=== PATIENT | female | born 1995 | race Caucasian/White ===

== ENCOUNTER 2025-02-23 16:21 | Emergency (ER) | payer OTHER, SELFPAY ==
--- OUTSIDE RECORDS SUMMARY | 2024-12-06 11:40 | XMS_ITS ---
Author Organization [facility] Address [address] [place] [address] Phone [phone] Care Team Providers Care Wrap Yarn Sorter Name Role Phone Angie Chambers Primary Care Provider REASON FOR VISIT 2 Month Psych F/U & Med Refill Medications Medication SIG (Take, Route, Frequency, Duration) Notes Start Date End Date Diagnosis (ICD Code) Status PARoxetine HCl 10 MG Tablet 1 tablet Orally Once a day; Duration: 15 days 10/11/2024 Major depressi on (ICD_10 - F32.9) Active Amphetamine-Dextro amphet ER 20 MG Capsule Extended Release 24 Hour 1 capsule in the morning Orally Once a day; Duration: 30 days 07/31/2024 ADD (attention deficit disorder) (ICD_10 - F90.0) Active buPROPion HCl ER (XL) 300 MG Tablet Extended Release 24 Hour 1 tablet in the morning Orally Once a day; Duration: 15 days Major depressi on (ICD_10 - F32.9) Active PARoxetine HCl 20 MG Tablet 1 tablet in the morning Orally Once a day; Duration: 15 days Major depressi on (ICD_10 - F32.9) Active Amphetamine-Dextro amphet ER 20 MG Capsule Extended Release 24 Hour 1 capsule in the morning Orally Once a day; Duration: 30 days 08/28/2024 ADD (attention deficit disorder) (ICD_10 - F90.0) Active Amphetamine-Dextro amphet ER 20 MG Capsule Extended Release 24 Hour 1 capsule in the morning Orally Once a day; Duration: 15 days 11/22/2024 ADD (attention deficit disorder) (ICD_10 - F90.0) Active Social History Sex Observation Social History Observation Description Sex Observation Female Sexual Orientation Social History Observation Description Sexual Orientation Straight or heterose xual Gender Identity Social History Observation Description Gender Identity Female Encounters Date Time Type Facility Location Provider Diagnosis 12/06/2024 11:40 AM Office Visit [address] [place] [address] Angie Chambers Plan Of Treatment No Information Medical (General) History Medical History History ICD Code Hx of methamphetamin abuse Surgical History Surgery Date(Month/Year) Tubal Ligation 12/2023 Hospitalization History Reason Date(Month/Year) Progress Notes * Sharee SHARMADOB:1995 (30 yo F)Acc No.[id number]:12/06/2024 UNLOCKED PROGRESS NOTE Patient: Sharee MCGEE Provider: Janae Chambers, MSN, RADIOLOGIC ELECTRONIC SPECIALIST, BUS REPAIR SUPERVISOR-C :1995 A ge:29 Y S ex:Female Date:12/06/2024 Address:[address] [place], [place] [address] Subjective: * Chief Complaints: * 1 . 2 Month Psych F/U & Med Refill. * Screening: * * Medical History: * Medications: T aking Amphetamine-Dextroamphet ER 20 MG Capsule Extended Release 24 Hour 1 capsule in the morning Orally Once a day , Taking Amphetamine-Dextroamphet ER 20 MG Capsule Extended Release 24 Hour 1 capsule in the morning Orally Once a day , Taking buPROPion HCl ER (XL) 300 MG Tablet Extended Release 24 Hour 1 tablet in the morning Orally Once a day , Taking PARoxetine HCl 20 MG Tablet 1 tablet in the morning Orally Once a day , Taking Amphetamine-Dextroamphet ER 20 MG Capsule Extended Release 24 Hour 1 capsule in the morning Orally Once a day , Taking PARoxetine HCl 10 MG Tablet 1 tablet Orally Once a day Objective: * Vitals: Assessment: Plan: * Treatment: * * Electronic signature of Fabrice Chambers , [id number] on 02/23/2025 at 04:29 PM DISTRICT ATTORNEY Sign off status: Pending * Provider: Janae Chambers, MSN, RADIOLOGIC ELECTRONIC SPECIALIST, BUS REPAIR SUPERVISOR-C Date: 1 Generated for Ananya celestin/Garett/Ángelitting on: 1 04/26/2024 04:29 PM DISTRICT ATTORNEY
--- OUTSIDE RECORDS SUMMARY | 2024-12-14 09:00 | XMS_ITS ---
Author Organization [facility] Address [address] [place] [address] Phone [phone] Care Team Providers Care Green Building Materials Designer Name Role Phone Angie Chambers Primary Care Provider REASON FOR VISIT 2 Month Psych F/U & Med Refill Medications Medication SIG (Take, Route, Frequency, Duration) Notes Start Date End Date Diagnosis (ICD Code) Status buPROPion HCl ER (XL) 300 MG Tablet [...] (attention deficit disorder) (ICD_10 - F90.0) Active PARoxetine HCl 10 MG Tablet 1 tablet Orally Once a day; Duration: 15 days 10/11/2024 Major depressi on (ICD_10 - F32.9) Active Social History Sex Observation Social History Observation Description Sex Observation Female Sexual Orientation Social History Observation Description Sexual Orientation Straight or heterose xual Gender Identity Social History Observation Description Gender Identity Female Encounters Date Time Type Facility Location Provider Diagnosis 12/14/2024 09:00 AM Office Visit [address] [place] [address] Angie Chambers Plan Of Treatment No Information Medical (General) History Medical History History ICD Code Hx of methamphetamin abuse Surgical History Surgery Date(Month/Year) Tubal Ligation 12/2023 Hospitalization History Reason Date(Month/Year) Progress Notes * Sharee SHARMADOB:1995 (30 yo F)Acc No.[id number]:12/14/2024 UNLOCKED PROGRESS NOTE Patient: Sharee MCGEE Provider: Janae Chambers, MSN, IT QUALITY ANALYST, GANG KNIFE FISH CHOPPER-C :1995 A ge:29 Y S ex:Female Date:12/14/2024 Address:[address] [place], [place] [address] Subjective: * Chief Complaints: * 1 . [...] * Electronic signature of Fabrice Chambers , [id number] on 02/23/2025 at 04:29 PM SHEARER SCREEN MEASURER AND TRIMMER Sign off status: Pending * Provider: Janae Chambers, MSN, IT QUALITY ANALYST, GANG KNIFE FISH CHOPPER-C Date: 1 Generated for Ananya celestin/Garett/Rosina on: 1 04/26/2024 04:29 PM SHEARER SCREEN MEASURER AND TRIMMER
[2025-02-23 16:27] VITALS: BP 136/89; PULSE 73; RESP 16; TEMP 36.3; O2SAT 100
--- OUTSIDE RECORDS SUMMARY | 2025-02-23 16:29 | XMS_ITS | Patient Health Record ---
Author Organization [facility] Address [address] [place] [address] Phone [phone] Care Team Providers Care Lamp Shade Sewer Name Role Phone Angie Chambers Primary Care Provider [phone] Lizette Campa [phone] Allergies Allergen (clinical drug ingredient) Drug/Non Drug Allergy documented on EMR Reaction Allergy Type Onset Date Status methylphenidate Methylphenidate Unknown Drug Allergy Active Reason For Referral Addressed Referral details can be found under 'Consultation Request Notes' section Medications Medication SIG (Take, Route, Frequency, Duration) Notes Start Date End Date Diagnosis (ICD Code) Status Amphetamine-Dextro amphet ER 20 MG Capsule Extended Release 24 Hour 1 capsule in the morning Orally Once a day; Duration: 30 days 03/06/2025 ADD (attention deficit disorder) (ICD_10 - F90.0) Active Amphetamine-Dextro amphet ER 20 MG Capsule Extended Release 24 Hour 1 capsule in the morning Orally Once a day; Duration: 30 days 08/28/2024 ADD (attention deficit disorder) (ICD_10 - F90.0) Active PARoxetine HCl 20 MG Tablet 1 tablet in the morning Orally Once a day; Duration: 30 days Major depressi on (ICD_10 - F32.9) Active Amphetamine-Dextro amphet ER 20 MG Capsule Extended Release 24 Hour 1 capsule in the morning Orally Once a day; Duration: 30 days 01/17/2025 ADD (attention deficit disorder) (ICD_10 - F90.0) Active PARoxetine HCl 10 MG Tablet 1 tablet Orally Once a day; Duration: 30 days Major depressi on (ICD_10 - F32.9) Active Amphetamine-Dextro amphet ER 20 MG Capsule Extended Release 24 Hour 1 capsule in the morning Orally Once a day; Duration: 30 days 02/06/2025 ADD (attention deficit disorder) (ICD_10 - F90.0) Active buPROPion HCl ER (XL) 300 MG Tablet Extended Release 24 Hour 1 tablet in the morning Orally Once a day; Duration: 30 days Major depressi on (ICD_10 - F32.9) Active Amphetamine-Dextro amphet ER 20 MG Capsule Extended Release 24 Hour 1 capsule in the morning Orally Once a day; Duration: 30 days 01/09/2025 ADD (attention deficit disorder) (ICD_10 - F90.0) Active Social History Tobacco Use: Social History Observation Description Date Details (start date - stop date) Former Smoker NA - NA Sex Observation Social History Observation Description Sex Observation Female Sexual Orientation Social History Observation Description Sexual Orientation Straight or heterose xual Gender Identity Social History Observation Description Gender Identity Female Social History Miscellaneous Social Info Question Answer Notes Method of learning: Preferred method of learning: Demo nstration Primary Social History Social Info Question Answer Notes Living Arrangement Living Arrangement: Dependent Reggie gan Living with: Other: lives with arin's mother a t her house. arin also lives in house. Is this a supportive environment? Yes Employment Status Employment Status: Unemployed Illicit Substance Usage Illicit Substance Usage: Yes Substance Used: Methamphetamine Frequency Methamphetamine is used: Last use was er 2020 Alcohol Use Alcohol Use Frequency: Never Tobacco Use: Social Info Question Answer Notes Dont use, Tobacco Use/Smoking Are you a former smok er How long has it been since you last smoked? 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) Added On:07/09 Active confirmed Vital Signs Vital Sign Value Notes Appt Date Heart Rate 75 /min 07/03/2024 Respiratory Rate 16 /min 07/03/2024 Blood pressure diastolic 72 mm Hg 06/2024 Oximetry 98 % 07/03/2024 Height 63.5 in 07/03/2024 Blood pressure systolic 118 mm Hg 06/2024 Weight 130.6 lbs 07/03/2024 BMI 22.77 kg/m2 07/03/2024 Encounters Date Time Type Facility Location Provider Diagnosis 03/07/19 03:40 PM Telehealth Office Visit, Est Pt., Level 4 (38566) [place] [address] [place] [address] Angie Chambers Generalized anxiety disorder F41.1 ; Major depression F32.9 ; ADD (attention deficit disorder) F90.0 ; Methamphetamine abuse F15.10 and Medication monitoring encounter Z51.81 04/04/19 25 03:40 PM Telehealth Office Visit, Est Pt., Level 4 (51960) [place] [address] [place] [address] Angie Chambers Generalized anxiety disorder F41.1 ; Major depression F32.9 ; ADD (attention deficit disorder) F90.0 ; Methamphetamine abuse F15.10 and Medication monitoring encounter Z51.81 07/04/19 25 04:00 PM Office Visit, Est Pt., Level 4 (94887) [address] [place] [address] Angie Chambers Generalized anxiety disorder F41.1 ; Major depression F32.9 ; ADD (attention deficit disorder) F90.0 ; Methamphetamine abuse F15.10 and Medication monitoring encounter Z51.81 10/12/19 25 01:00 PM Telehealth Office Visit, Est Pt., Level 4 (97356) [address] [place] [address] Angie Chambers Generalized anxiety disorder F41.1 ; Major depression F32.9 ; ADD (attention deficit disorder) F90.0 ; Methamphetamine abuse F15.10 and Medication monitoring encounter Z51.81 10/14/19 01:00 PM Office Visit [facility] [address] [place] [address] Lizettebrett Campa 01/04/20 11:20 AM Telehealth Office Visit, Est Pt., Level 4 (36370) [address] [place] [address] Angie Chambers Generalized anxiety disorder F41.1 ; Major depression F32.9 ; ADD (attention deficit disorder) F90.0 ; Methamphetamine abuse F15.10 and Medication monitoring encounter Z51.81 06/02/19 04:04 PM Telephone Encounter [facility] [address] [address] Angie Chambers ADD (attention deficit disorder) F90.0 10/04/19 12:27 PM Telephone Encounter [address] [address] Angie Chambers Major depression F32.9 and ADD (attention deficit disorder) F90.0 11/23/19 12:10 PM Telephone Encounter [address] [place] [address] Angie Chambers Major depression F32.9 and ADD (attention deficit disorder) F90.0 01/06/20 02:50 PM Telephone Encounter [facility] [address] [address] Angie Chambers 01/10/20 02:25 PM Telephone Encounter [facility] [address] [address] Agnie Chambers ADD (attention deficit disorder) F90.0 01/17/20 25 03:51 PM Telephone Encounter [address] [place] [place] [address] Angie Chambers ADD (attention deficit disorder) F90.0 01/18/20 02:13 PM Telephone Encounter [address] [place] [place] [address] Angie Chambers Assessments Encounter Date Diagnosis (ICD Code) Assessment Notes Treatment Notes Section Notes 01/03/2025 Generalized anxiety disorder (ICD-10 - F41.1) Continue Paxil 03/07/2024 Generalized anxiety disorder (ICD-10 - F41.1) Continue Paxil 04/04/2024 Generalized anxiety disorder (ICD-10 - F41.1) Continue Paxil 07/03/2024 Generalized anxiety disorder (ICD-10 - F41.1) Continue Paxil 10/11/2024 Generalized anxiety disorder (ICD-10 - F41.1) Continue Paxil 10/03/2024 Major depression (ICD-10 - F32.9) 11/22/2024 Major depression (ICD-10 - F32.9) 01/09/2025 ADD (attention deficit disorder) (ICD-10 - F90.0) CancelRx Response got Denied on 2025-01-17 08:48:39 for 'Amphetamine-Dextroamph et ER 20 MG Capsule Extended Release 24 Hour'Pharmacy Notes: Already cancelled [facility] Response got Denied on 2025-01-17 08:48:40 for 'Amphetamine-Dextroamph et ER 20 MG Capsule Extended Release 24 Hour'Pharmacy Notes: Already cancelled 01/16/2025 ADD (attention deficit disorder) (ICD-10 - F90.0) 06/01/2024 ADD (attention deficit disorder) (ICD-10 - F90.0) 10/03/2024 ADD (attention deficit disorder) (ICD-10 - F90.0) 03/07/2024 Major depression (ICD-10 - F32.9) 11/22/2024 ADD (attention deficit disorder) (ICD-10 - F90.0) 01/03/2025 Major depression (ICD-10 - F32.9) SE to paxil 30 mg in the past, split dosing to 20mg in morning and 10mg at night, continue at this time as reports doing well. monitor anxiety; f/u in 3 months or before if/as needed. 10/11/2024 Major depression (ICD-10 - F32.9) SE to paxil 30 mg in the past, splitting dosing to 20mg in morning and 10mg at night. 04/04/2024 Major depression (ICD-10 - F32.9) 07/03/2024 Major depression (ICD-10 - F32.9) 01/03/2025 ADD (attention deficit disorder) (ICD-10 - F90.0) PDMP checked without concerns. Discussed controlled sub and stimulant education. 03/07/2024 ADD (attention deficit disorder) (ICD-10 - F90.0) PDMP checked without concerns. Discussed controlled sub and stimulant education. Client trialed Strattera, Wellbutrin, and Kapvay with no relief from impaired concentration/focus. Vyvanse with minimal improvement. Hx of doing well on Adderall when she was a child, 30mg ER. Starting 20mg and will eval. 04/04/2024 ADD (attention deficit disorder) (ICD-10 - F90.0) PDMP checked without concerns. Discussed controlled sub and stimulant education. 10/11/2024 ADD (attention deficit disorder) (ICD-10 - F90.0) PDMP checked without concerns. Discussed controlled sub and stimulant education. 07/03/2024 ADD (attention deficit disorder) (ICD-10 - F90.0) PDMP checked without concerns. Discussed controlled sub and stimulant education. 01/03/2025 Methamphetamine abuse (ICD-10 - F15.10) client reports she is doing well with her sobriety at this time 03/07/2024 Methamphetamine abuse (ICD-10 - F15.10) client reports she is doing well with her sobriety at this time 04/04/2024 Methamphetamine abuse (ICD-10 - F15.10) client reports she is doing well with her sobriety at this time 07/03/2024 Methamphetamine abuse (ICD-10 - F15.10) client reports she is doing well with her sobriety at this time 10/11/2024 Methamphetamine abuse (ICD-10 - F15.10) client reports she is doing well with her sobriety at this time 03/07/2024 Medication monitoring encounter (ICD-10 - Z51.81) 04/04/2024 Medication monitoring encounter (ICD-10 - Z51.81) 07/03/2024 Medication monitoring encounter (ICD-10 - Z51.81) 10/11/2024 Medication monitoring encounter (ICD-10 - Z51.81) 01/03/2025 Medication monitoring encounter (ICD-10 - Z51.81) 07/03/2024 Other Reasons, potential benefits, potential risks, interactions and side effects of all medications were discussed. The Patient/Guardian asked appropriate questions, appeared to understand the answers, and decided to accept the treatment and continue being followed. Alternatives and expected course without treatment were reviewed. The Patient/Guardian is aware of the need to contact the office or return for an earlier appointment if any problems or concerns arise. May also contact the 24-hour crisis hotline ([facility]), refer to the closest emergency room or call 911 if new symptoms arise of existing symptoms worsen. The Patient/Guardian is aware that this would apply to symptoms like: suicidal ideation, homicidal ideation, high risk behaviors, manic symptoms, psychotic symptoms, physical symptoms, or any other symptoms that may be dangerous to self or others. Greater than 50% of time spent on coordination and counseling where psychopharmacology as well as psychotherapeutic interventions were discussed along with review of treatments in the past. Education provided concerning need for adequate hydration. Patient/Guardian verbalized understanding of education, treatment plan and follow up. 01/03/2025 Other Reasons, potential benefits, potential risks, interactions and side effects of all medications were discussed. The Patient/Guardian asked appropriate questions, appeared to understand the answers, and decided to accept the treatment and continue being followed. Alternatives and expected course without treatment were reviewed. The Patient/Guardian is aware of the need to contact the office or return for an earlier appointment if any problems or concerns arise. May also contact the 24-hour crisis hotline ([facility]), refer to the closest emergency room or call 911 if new symptoms arise of existing symptoms worsen. The Patient/Guardian is aware that this would apply to symptoms like: suicidal ideation, homicidal ideation, high risk behaviors, manic symptoms, psychotic symptoms, physical symptoms, or any other symptoms that may be dangerous to self or others. Greater than 50% of time spent on coordination and counseling where psychopharmacology as well as psychotherapeutic interventions were discussed along with review of treatments in the past. Education provided concerning need for adequate hydration. Patient/Guardian verbalized understanding of education, treatment plan and follow up. This session was completed telephonically with client/parental/orin n consent: Unable to determine movement status, assess appearance, affect, AIMS, or vital signs. 03/07/2024 Other Reasons, potential benefits, potential risks, interactions and side effects of all medications were discussed. The Patient/Guardian asked appropriate questions, appeared to understand the answers, and decided to accept the treatment and continue being followed. Alternatives and expected course without treatment were reviewed. The Patient/Guardian is aware of the need to contact the office or return for an earlier appointment if any problems or concerns arise. May also contact the 24-hour crisis hotline ([facility]), refer to the closest emergency room or call 911 if new symptoms arise of existing symptoms worsen. The Patient/Guardian is aware that this would apply to symptoms like: suicidal ideation, homicidal ideation, high risk behaviors, manic symptoms, psychotic symptoms, physical symptoms, or any other symptoms that may be dangerous to self or others. Greater than 50% of time spent on coordination and counseling where psychopharmacology as well as psychotherapeutic interventions were discussed along with review of treatments in the past. Education provided concerning need for adequate hydration. Patient/Guardian verbalized understanding of education, treatment plan and follow up. This session was completed telephonically with client/parental/orin n consent: Unable to determine movement status, assess appearance, affect, AIMS, or vital signs. 04/04/2024 Other Reasons, potential benefits, potential risks, interactions and side effects of all medications were discussed. The Patient/Guardian asked appropriate questions, appeared to understand the answers, and decided to accept the treatment and continue being followed. Alternatives and expected course without treatment were reviewed. The Patient/Guardian is aware of the need to contact the office or return for an earlier appointment if any problems or concerns arise. [facility] also [facility]), refer to the closest emergency room or call 911 if new symptoms arise of existing symptoms worsen. The Patient/Guardian is aware that this would apply to symptoms like: suicidal ideation, homicidal ideation, high risk behaviors, manic symptoms, psychotic symptoms, physical symptoms, or any other symptoms that may be dangerous to self or others. Greater than 50% of time spent on coordination and counseling where psychopharmacology as well as psychotherapeutic interventions were discussed along with review of treatments in the past. Education provided concerning need for adequate hydration. Patient/Guardian verbalized understanding of education, treatment plan and follow up. This session was completed telephonically with client/parental/orin n consent: Unable to determine movement status, assess appearance, affect, AIMS, or vital signs. 10/11/2024 Other Reasons, potential benefits, potential risks, interactions and side effects of all medications were discussed. The Patient/Guardian asked appropriate questions, appeared to understand the answers, and decided to accept the treatment and continue being followed. Alternatives and expected course without treatment were reviewed. The Patient/Guardian is aware of the need to contact the office or return for an earlier appointment if any problems or concerns arise. May also contact the 24-hour crisis hotline ([facility]), refer to the closest emergency room or call 911 if new symptoms arise of existing symptoms worsen. The Patient/Guardian is aware that this would apply to symptoms like: suicidal ideation, homicidal ideation, high risk behaviors, manic symptoms, psychotic symptoms, physical symptoms, or any other symptoms that may be dangerous to self or others. Greater than 50% of time spent on coordination and counseling where psychopharmacology as well as psychotherapeutic interventions were discussed along with review of treatments in the past. Education provided concerning need for adequate hydration. Patient/Guardian verbalized understanding of education, treatment plan and follow up. This session was completed telephonically with client/parental/orin n consent: Unable to determine movement status, assess appearance, affect, AIMS, or vital signs. Plan Of Treatment No Information Insurance Providers Payer Name Payer Address Payer Phone Subscriber Number Group Number Insured Name Patient Relationship to Insured Coverage Start Date Coverage End Date [facility] [address] [place] [address] [phone] [id number] Sharee Arceo Self - patient is the insured 1 4 MED[address]ID [address] [place] [address] [id number] Sharee Arceo Self - patient is the insured 2 MEDICAID [facility] [address] [place] [address] [id number] Sharee Arceo Self - patient is the insured 5 Medical (General) History Medical History History ICD Code Hx of methamphetamin abuse Surgical History Surgery Date(Month/Year) Tubal Ligation 12/2023 Hospitalization History Reason Date(Month/Year)
--- NOTE | 2025-02-23 16:45 | ED_ITS ---
HPI - URI/Sore Throat General Chief Complaint: Upper Respiratory Infection Stated Complaint: Sore Throat/Nasal Congestion Time Seen by Provider: 02/23/25 16:35 Source: patient Mode of arrival: ambulatory Limitations: no limitations History of Present Illness HPI Narrative: Sharee is a 30-year-old female patient presenting to the clinic today with complaints of sore throat, nasal congestion, cough, headache, and feeling fever which with body aches. Symptoms have been going on for 1 day. Her son is also sick in the clinic today. She denies any chest pain or shortness of breath. MD elicited complaint: sore throat and nasal congestion Related Data Home Medications ?Medication ?Instructions ?Recorded ?Confirmed ?Last Taken ?Type bupropion HCl 300 mg 24 hr tablet, mg PO 02/23/25 Unk nown History extended release dextroamphetamine-amphetamine ER PO 02/23/25 Unknown History 20 mg 24hr capsule,extend release paroxetine HCl 10 mg tablet mg PO 02/23/25 Unknown Hi story Allergies Allergy/AdvReac Type Severity Reaction Status Date / Time No Known Allergies Allergy Verified 02/23/25 16:41 Review of Systems Review of Systems: Pertinent positives per HPI. Patient denies any fever, chills, rash, headache, visual changes, dizziness, cough, shortness of breath, chest pain, palpitations, nausea, vomiting, diarrhea, constipation, abdominal pain, or any urinary issues. PMFSH Comments At the time of my signature, I reviewed and agree with the nursing past medical, surgical, social, and family history. There is no relevant family history pertinent to the patient complaint. Exam Narrative: General: Well-developed, well nourished, in no apparent distress Head: Normocephalic, atraumatic Eyes: Pupils equally round and reactive to light bilaterally, EOM intact, sclera and conjunctive clear, no discharge, lids normal Ears: TMs intact and clear, ear canals clear, no drainage, grossly hearing normal. Nose: Nares patent, clear discharge, mild inflammation, no sinus tenderness. Mouth: Oral pharynx red without lesions or masses, good dentition, MMM. Neck: Supple, trachea midline, no enlargement of anterior or posterior cervical nodes, no thyroid masses or goiter palpable. Cardio: Regular rate and rhythm, s1 and s2 normal, no murmur appreciated. Resp: Clear to auscultation bilaterally, no rhonchi, rales, wheezing or rubs Course Course Level of Care: Express Care Visit Vital Signs Vital signs: Vital Signs Temperature 36.3 C L 02/23/25 16:27 Pulse Rate 73 02/23/25 16:27 Respiratory Rate 16 02/23/25 16:27 Blood Pressure 136/89 02/23/25 16:27 Pulse Oximetry 100 02/23/25 16:27 Oxygen Delivery Room Air 02/23/25 16:27 Temperature 36.3 C L 02/23/25 16:27 Pulse Rate 73 02/23/25 16:27 Respiratory Rate 16 02/23/25 16:27 Blood Pressure 136/89 02/23/25 16:27 Pulse Oximetry 100 02/23/25 16:27 Oxygen Delivery Room Air 02/23/25 16:27 MDM MDM Narrative Medical decision making narrative: At the time of visit patient is resting comfortably on the exam table. Patient appears to be nontoxic. Complaints of sore throat, nasal congestion, cough, headache, and feeling fever which with body aches. Symptoms have been going on for 1 day. Her son is also sick in the clinic today. She denies any chest pain or shortness of breath. On exam patient has bilateral TMs intact and clear, clear nasal drainage, mild anterior turbinate inflammation, oropharynx mildly red without tonsillar enlargement or cervical lymphadenopathy, lung sounds are clear, heart rates regular rate and rhythm. COVID and influenza testing was ordered. Labs: COVID and influenza testing were performed. COVID testing was negative. Influenza a testing was positive. Plan: Patient has influenza A. Supportive measures were discussed with the patient and they voiced understanding discharge instructions and agrees to treatment plan. Return precautions reviewed Differential Diagnosis Differential Diagnosis: Differential diagnostic considerations for upper respiratory infection include upper respiratory infection, croup, otitis media, sinusitis, viral infection, bronchitis, influenza, pharyngitis, strep, uvulitis. Lab Data Labs: Lab Results 02/23/25 Range/Units 16:53 POC Influenza A Ag Positive (Negative) POC Influenza B Ag Negative (Negative) POC SARS CoV-2 Ag Negative (Negative) Discharge Plan Discharge Clinical Impression: Influenza A Patient Disposition: Home Condition: Stable Instructions: Antibiotic Form, Influenza (ED) Additional Instructions: COVID and influenza testing was negative in the clinic today. Increase fluids and stay well hydrated May take Tylenol or motrin as directed on bottle for pain/fever May use Flonase 1 spray in each nare daily May take OTC antihistamines such as Zyrtec or Claritin daily as directed on mel ttle May apply Vicks vapor rub to chest to open sinuses Sinus rinses for congestion Cepacol spray, cough drops, throat lozenges, warm tea with honey/lemon, gargle salt water to soothe throat BRAT diet for diarrhea Clear liquids x 24 hours then advance as tolerated for nausea/vomiting Go to the ED if you develop a worsening in your condition- high fever not controlled by Tylenol or Motrin, dehydration, weakness, lethargy, shortness of breath, or chest pain. Follow up with your PCP in 3-5 days if symptoms persist. Patient Language: Khmer Prescriptions: No Action paroxetine HCl 10 mg tablet PO dextroamphetamine-amphetamine 20 mg capsule,extended release 24hr PO bupropion HCl 300 mg tablet extended release 24 hr PO Follow-up/Referrals: PHYSICIAN,RETURN TO SERVICE INSPECTOR [Primary Care Provider, Internal Medicine] Time of Disposition: 16:55 Quality NIHSS Nursing Documentation ED NIHSS nursing documentation: reviewed/agree
[2025-02-23 16:55] LABS: EDCOVIDSCREEN Negative (Negative); EDINFLUASCREEN Positive (Negative); EDINFLUBSCREEN Negative (Negative)
== END 2025-02-23 16:58 | disposition home or self-care (01) ==
PROVIDERS: Emergency Provider Nurse Practitioner Family
DX: J10.1 Influenza due to other identified influenza virus with other respiratory manifestations (principal); Z20.822 Contact with and (suspected) exposure to COVID-19; F90.9 Attention-deficit hyperactivity disorder, unspecified type; F41.9 Anxiety disorder, unspecified; F32.A Depression, unspecified
CPT/HCPCS: 87426; 87804; 99212; G0463